=== PATIENT | female | born 1965 | race Hispanic/Latino ===

== ENCOUNTER 2017-11-10 06:15 | Day surgery (SDC) | payer BC, OTHER ==
[~2017-11-10] VITALS: Ht 165.1 cm; Wt 58.3 kg
[2017-11-10 06:38] VITALS: BP 140/84
[2017-11-10] MEDS ORDERED: SODIUM CHLORIDE 0.9% 1000ML 1,000 ML IV ONE (07:03)
[2017-11-10] MEDS ORDERED: GLYCOPYRROLATE 0.2 MG/ML 5 ML VIAL ONE (07:31)
[2017-11-10] MEDS ORDERED: LIDOCAINE HCL 2% 20ML ONE ×2 (07:31→07:32)
[2017-11-10] MEDS ORDERED: PROPOFOL 10 MG/ML 20ML VIAL IV ONE ×2 (07:31→07:55)
[2017-11-10] MEDS ORDERED: FENTANYL CITRATE PF 50 MCG/1 ML 2ML VIAL ONE (07:32)
[2017-11-10 08:02] VITALS: BP 101/62
== END 2017-11-10 08:40 ==
LOC: ENDO 06:15 → DAH 06:15 → ENDO 08:40
PROVIDERS: ATTEND Internal Medicine
DX: K31.89 Other diseases of stomach and duodenum (principal); K85.00 Idiopathic acute pancreatitis without necrosis or infection; K83.8 Other specified diseases of biliary tract; Z90.710 Acquired absence of both cervix and uterus; Z90.49 Acquired absence of other specified parts of digestive tract
CPT/HCPCS: 43237; 43239; A4606; J2704 ×2; J3010; J3490 ×3; J7030; 43231